=== PATIENT | female | born 1990 | race American Indian/Alaskan Native ===

== ENCOUNTER 2021-09-01 13:18 | Emergency (ER) | payer MEDICAID ==
--- NOTE | 2021-09-01 15:13 | Emergency Department Report ---
<KALLIE MAGUIRE - Last Filed: 09/01/21 17:06> ED Female HPI - General Chief complaint: Abdominal Pain Stated complaint: VOMITING, CONSTIPATION, PG Time Seen by Provider: 09/01/21 14:41 Source: patient Mode of arrival: Ambulatory Limitations: No Limitations - History of Present Illness Initial comments: 30-year-old female with a past medical history of hypertension presents to the ER today with complaints of low abdominal pain constipation. Patient states that she symptoms started about 4 days ago. She reports cramping in her lower abdomen which has been constant. She states that she has not had a proper bowel movement in 4 days. She did take laxative last night's but she states that when she did have a bowel movement it was only a small amount and the stool was hard. She states that she went to [facility] for her symptoms and she found that at the time that she was . She states that her last menstrual cycle was sometime in July, she is not exactly sure of the actual date. Patient states that she did not suspect . This will be her third , she has 2 living kids at home, no history of abortions or miscarriages in the past. She denies any UTI symptoms or vaginal bleeding. She states that she has been vomiting over the past 4 days and not able to keep any thing down. She is status post cholecystectomy. She states that she used to be on nifedipine for blood pressure, but the provider she saw today switched her over to labetalol. Complaint: other (lower abd pain/constipation/preg) -: days(s) (4) - Related Data Previous Rx's Medication Instructions Recorded Last Taken Type Docusate Sodium [Colace] 100 mg PO BID PRN #30 capsule 09/01/21 Unknown Rx Glycerin 1 each RC DAILY PRN #8 supp.rect 09/01/21 Unknown Rx Metoclopramide [Reglan] 10 mg PO Q8HR PRN #14 tab 09/01/21 Unknown Rx cephALEXin [Keflex] 500 mg PO BID 7 Days #14 capsule 09/01/21 Unknown Rx labetaloL [Labetalol 100mg TAB] 100 mg PO BID #60 tablet 09/01/21 Unknown Rx Allergies Allergy/AdvReac Type Severity Reaction Status Date / Time No Known Allergies Allergy Unverified 09/01/21 14:45 ED Review of Systems Comment: All other systems reviewed and negative Constitutional: denies: chills, fever Eyes: denies: eye pain, eye discharge, vision change ENT: denies: ear pain, throat pain Respiratory: denies: cough, shortness of breath, SOB with exertion, SOB at rest, wheezing Cardiovascular: denies: chest pain, palpitations Gastrointestinal: abdominal pain, nausea, vomiting. denies: diarrhea, constipation, hematemesis, melena, hematochezia Genitourinary: denies: urgency, dysuria, frequency, hematuria, discharge, abnorm al menses, dyspareunia Musculoskeletal: denies: back pain, joint swelling, arthralgia, myalgia Skin: denies: rash, lesions Neurological: denies: headache, weakness, numbness, paresthesias, confusion, abnormal gait, vertigo Psychiatric: denies: anxiety, depression, auditory hallucinations, visual shazia lucinations, homicidal thoughts, suicidal thoughts Hematological/Lymphatic: denies: easy bleeding, easy bruising, swollen glands ED Past Medical Hx - Medications Home Medications: Home Medications Medication Instructions Recorded Confirmed Last Taken Type Docusate Sodium [Colace] 100 mg PO BID PRN #30 capsule 09/01/21 Unknown Rx Glycerin 1 each RC DAILY PRN #8 supp.rect 09/01/21 Unknown Rx Metoclopramide [Reglan] 10 mg PO Q8HR PRN #14 tab 09/01/21 Unknown Rx cephALEXin [Keflex] 500 mg PO BID 7 Days #14 capsule 09/01/21 Unknown Rx labetaloL [Labetalol 100mg TAB] 100 mg PO BID #60 tablet 09/01/21 Unknown Rx ED Physical Exam - General Limitations: No Limitations General appearance: alert, in no apparent distress - Head Head exam: Present: atraumatic, normocephalic, normal inspection - Eye Eye exam: Present: normal appearance, PERRL, EOMI Pupils: Present: normal accommodation - Neck Neck exam: Present: normal inspection, full ROM. Absent: meningismus - Respiratory Respiratory exam: Present: normal lung sounds bilaterally. Absent: respiratory distress, wheezes, rales, rhonchi - Cardiovascular Cardiovascular Exam: Present: regular rate, normal rhythm, normal heart sounds - GI/Abdominal GI/Abdominal exam: Present: soft, tenderness (Mild ttp suprapubic and LLQ without guarding or rebound ). Absent: distended ED Medical Decision Making - Lab Data Result diagrams: 09/01/21 15:25 09/01/21 15:25 - Medical Decision Making 1707: The patient's care has been transferred to and accepted by[Irma Harding PA-C ]. We discussed: The patient's chief complaints; labs and imaging that have been completed and those that are still pending; any treatment provided and the patient's response to treatment; any significant change in condition. The accepting provider will follow up on all pending labs and imaging and make any necessary changes to the current impression and/or treatment plan. The accepting physician/midlevel is now responsible for the patient's care and final disposition. ED Disposition Clinical Impression: Constipation Abdominal pain in Qualifiers: Trimester: first trimester Qualified Code(s): O26.891 - Other specified related conditions, first trimester Constipation during Qualifiers: Trimester: first trimester Qualified Code(s): O99.611 - Diseases of the digestive system complicating , first trimester Nausea & vomiting Qualifiers: Vomiting type: unspecified Qualified Code(s): R11.2 - Nausea with vomiting, unspecified UTI (urinary tract infection) Qualifiers: Urinary tract infection type: acute cystitis Hematuria presence: with hematuria Qualified Code(s): N30.01 - Acute cystitis with hematuria Disposition: HOME / SELF CARE / HOMELESS Condition: Stable Instructions: Abdominal Pain During , [id number], Constipation, Adult, [id number], Urinary Tract Infection, Adult, Abdominal Pain (ED) Additional Instructions: Please use medication as prescribed. Please take a vitamin [id number]. Increase your fluid intake. Follow-up with KITCHEN CLERK. Return to emergency room for any new or worsening symptoms. Prescriptions: Docusate Sodium [Colace] 100 mg PO BID PRN #30 capsule PRN Reason: constipation Glycerin 1 each RC DAILY PRN #8 supp.rect PRN Reason: constipation cephALEXin [Keflex] 500 mg PO BID 7 Days #14 capsule labetaloL [Labetalol 100mg TAB] 100 mg PO BID #60 tablet Metoclopramide [Reglan] 10 mg PO Q8HR PRN #14 tab PRN Reason: nausea/vomiting Referrals: PRIMARY CARE, [Primary Care Provider] - 3-5 Days [facility] [Provider Group] - 3-5 Days Print Language: CITIZEN OF [place] <IRMA HARDING [place] - Last Filed: 09/01/21 21:06> ED Review of Systems ROS: Stated complaint: VOMITING, CONSTIPATION, PG Other details as noted in HPI ED Course Vital Signs 09/01/21 09/01/21 14:43 18:35 Temperature 98.1 F 97.5 F L Pulse Rate 77 70 Respiratory 18 16 Rate Blood Pressure 141/106 154/84 [Left] O2 Sat by Pulse 100 100 Oximetry ED Medical Decision Making - Lab Data Result diagrams: 09/01/21 15:25 09/01/21 15:25 Labs 09/01/21 09/01/21 09/01/21 15:25 15:25 15:25 WBC 8.6 RBC 5.35 H Hgb 13.5 Hct 42.6 MCV 80 MCH 25 L MCHC 32 RDW 14.5 Plt Count 188 Lymph % (Auto) 21.6 Day % (Auto) 6.3 Eos % (Auto) 0.5 Baso % (Auto) 0.5 Lymph # (Auto) 1.9 Day # (Auto) 0.5 Eos # (Auto) 0.0 Baso # (Auto) 0.0 Seg Neutrophils % 71.1 H Seg Neutrophils # 6.1 Sodium 137 Potassium 3.5 L Chloride 100.6 Carbon Dioxide 22 Anion Gap 18 BUN 8 Creatinine 0.6 Estimated GFR > 60 BUN/Creatinine Ratio 13 Glucose 88 Calcium 9.9 Total Bilirubin 0.50 AST 12 ALT 9 Alkaline Phosphatase 71 Total Protein 8.2 Albumin 4.9 Albumin/Globulin Ratio 1.5 HCG, Quant 23978 H Urine Color Urine Turbidity Urine pH Ur Specific [place] Urine Protein Urine Glucose (UA) Urine Ketones Urine Blood Urine Nitrite Urine Bilirubin Urine Urobilinogen Ur Leukocyte Esterase Urine WBC (Auto) Urine RBC (Auto) U Epithel Cells (Auto) Urine Mucus 09/01/21 Unknown WBC RBC Hgb Hct MCV MCH MCHC RDW Plt Count Lymph % (Auto) Day % (Auto) Eos % (Auto) Baso % (Auto) Lymph # (Auto) Day # (Auto) Eos # (Auto) Baso # (Auto) Seg Neutrophils % Seg Neutrophils # Sodium Potassium Chloride Carbon Dioxide Anion Gap BUN Creatinine Estimated GFR BUN/Creatinine Ratio Glucose Calcium Total Bilirubin AST ALT Alkaline Phosphatase Total Protein Albumin Albumin/Globulin Ratio HCG, Quant Urine Color Jessica Urine Turbidity Slightly-cloudy Urine pH 5.0 Ur Specific [place] 1.033 H Urine Protein 100 mg/dl Urine Glucose (UA) Neg Urine Ketones 80 Urine Blood Neg Urine Nitrite Neg Urine Bilirubin Neg Urine Urobilinogen 2.0 Ur Leukocyte Esterase Tr Urine WBC (Auto) 15.0 H Urine RBC (Auto) 124.0 U Epithel Cells (Auto) 38.0 H Urine Mucus 3+ - Radiology Data Radiology results: report reviewed Ordering Physician: KALLIE MAGUIRE Date of Service: 09/01/21 Procedure(s): US OB transvaginal Accession Number(s): [id number] cc: KALLIE MAGUIRE ULTRASOUND OBSTETRIC INDICATION / CLINICAL INFORMATION: lower abdominal pain/preg/Q 4000. Clinical Gestational Age (GA) in weeks, days: Unknown TECHNIQUE: . Transvaginal COMPARISON: None available. FINDINGS: GESTATIONAL SAC: Well-defined oval shape and intrauterine in location. YOLK SAC: No significant abnormality. EMBRYO/FETUS: No significant abnormality. - [place]-Rump Length = 0.48 cm = 6 weeks, 1 days - Heart Rate, beats per minute (if present) = 118 ADNEXA: No significant abnormality. Left ovarian corpus luteal cyst measuring 1.8 cm is present. FREE FLUID: Minimal free fluid in the posterior cul-de-sac. ADDITIONAL FINDINGS: None. IMPRESSION: 1. Single, living intrauterine with estimated sonographic age of 6 weeks, 1 days. Signer Name: Ptat Oates MD Signed: 09/01/2021 6:00 PM Workstation Name: [id number] Transcribed By: JR Dictated By: Patt Oates MD Electronically Authenticated By: Patt Oates MD Signed Date/Time: 09/01/21 1800 DD/ 57 TD/TT: - Medical Decision Making Patient signed out by Kallie Maguire PA-C pending ultrasound results OB ultrasound shows 1. Single, living intrauterine with estimated sonographic age of 6 weeks, 1 days. UA shows evidence of mild UTI Patient given Tylenol, IV fluids, IV Reglan and symptoms have improved and she is feeling much better ready to go home, she had no further episodes of vomiting is able to tolerate p.o. intake Discussed all findings with patient and answer questions and discussed the importance that we follow Patient states that she has chronic hypertension and was taking nifedipine, she states that [place] recommended switching to labetalol but did not yet give her prescription, patient will be started on 100 mg labetalol twice daily and [place] can adjust as needed, advised patient to keep blood pressure log and eat a low-sodium diet advised pt Please use medication as prescribed. Please take a vitamin [id number]. Increase your fluid intake. Follow-up with KITCHEN CLERK. Return to emergency room for any new or worsening symptoms. Critical care attestation.: If time is entered above; I have spent that time in minutes in the direct care of this critically ill patient, excluding procedure time. ED Disposition Is pt being admited?: No Does the pt Need Aspirin: No Time of Disposition: 18:06
[2021-09-01] MEDS ORDERED: SODIUM CHLORIDE 0.9% 1000 ML 1,000 ML IV ONE (15:15)
[2021-09-01] MEDS ORDERED: ACETAMINOPHEN 500 MG TAB PO ONE (15:15)
[2021-09-01] MEDS ORDERED: ONDANSETRON 4 MG/2 ML INJ IV ONE (15:15)
[2021-09-01 15:44] LABS: Basophils % (Auto) 0.5 % (0.0-1.8); Eosinophils % (Auto) 0.5 % (0.0-4.3); Hematocrit 42.6 % (30.3-42.9); Hemoglobin 13.5 gm/dl (10.1-14.3); Lymphocytes # (Auto) 1.9 K/mm3 (1.2-5.4); Lymphocytes % (Auto) 21.6 % (13.4-35.0); Mean Corpuscular HGB Conc 32 % (30-34); Mean Corpuscular Volume 80 fl (79-97); Monocytes # (Auto) 0.5 K/mm3 (0.0-0.8); Monocytes % (Auto) 6.3 % (0.0-7.3); Platelet Count 188 K/mm3 (140-440); Red Blood Count 5.35 M/mm3 (3.65-5.03); Red Cell Distribution Width 14.5 % (13.2-15.2)
[2021-09-01 16:05] LABS: Alanine Aminotransferase 9 units/L (7-56); Albumin 4.9 g/dL (3.9-5); Blood Urea Nitrogen 8 mg/dL (7-17); Calcium 9.9 mg/dL (8.4-10.2); Hemolysis Index 4
[2021-09-01 16:33] LABS: BUN/Creatinine Ratio 13
[2021-09-01 17:37] LABS: Bilirubin,Urine NEG (Negative); Blood,Urine NEG (Negative); Color,Urine Amber (Yellow); Mucus,Urine 3+ /HPF
--- NOTE | 2021-09-01 18:04 | Ultrasound Report ---
ULTRASOUND OBSTETRIC INDICATION / CLINICAL INFORMATION: lower abdominal pain/preg/Q 4000. Clinical Gestational Age (GA) in weeks, days: Unknown TECHNIQUE: . Transvaginal COMPARISON: None available. FINDINGS: GESTATIONAL SAC: Well-defined oval shape and intrauterine in location. YOLK SAC: No significant abnormality. EMBRYO/FETUS: No significant abnormality. - [place]-Rump Length = 0.48 cm = 6 weeks, 1 days - Heart Rate, beats per minute (if present) = 118 ADNEXA: No significant abnormality. Left ovarian corpus luteal cyst measuring 1.8 cm is present. FREE FLUID: Minimal free fluid in the posterior cul-de-sac. ADDITIONAL FINDINGS: None. IMPRESSION: 1. Single, living intrauterine with estimated sonographic age of 6 weeks, 1 days. Signer Name: Patt Oates MD Signed: 09/01/2021 6:00 PM Workstation Name: [id number]
[2021-09-01 18:37] VITALS: BP 154/84
== END 2021-09-01 18:37 | disposition home or self-care (01) ==
LOC: ED 13:18
DX: O26.891 Other specified pregnancy related conditions, first trimester (principal); R10.9 Unspecified abdominal pain; O99.611 Diseases of the digestive system complicating pregnancy, first trimester; O21.9 Vomiting of pregnancy, unspecified; O23.41 Unspecified infection of urinary tract in pregnancy, first trimester; N39.0 Urinary tract infection, site not specified; Z3A.00 Weeks of gestation of pregnancy not specified
CPT/HCPCS: 36415; 76817; 80053; 81001; 84702; 85025; 87076; 87086; 87186; 96361; 96374; 99284; J2405; J7030; Q0162